=== PATIENT | male | born 1970 | race African-American/Black ===

== ENCOUNTER 2019-11-28 17:35 | Emergency (ER) | payer OTHER ==
[~2019-11-28] VITALS: Ht 180.3 cm; Wt 89.8 kg
[2019-11-28 19:22] LABS: URINE BILIRUBIN NEGATIVE (Negative); URINE BLOOD 2+ (Negative); URINE CLARITY CLEAR; URINE COLOR YELLOW; URINE GLUCOSE-RANDOM* NEGATIVE (Negative); URINE KETONES TRACE (Negative); URINE LEUKOCYTES-REFLEX NEGATIVE (Negative); URINE NITRITE-REFLEX NEGATIVE (Negative); URINE PROTEIN (DIPSTICK) NEGATIVE (Negative); URINE SPECIFIC GRAVITY <= 1.005 (1.005-1.035)
[2019-11-28 19:26] LABS: HEMATOCRIT 31.4 % (42.0-52.0); HEMOGLOBIN 10.3 gm/dL (14.0-18.0); MCH 25.7 pg (26.0-34.0); MCHC 32.7 g/dL (28.0-37.0); MCV 78.6 fL (80.0-100.0); PLATELET COUNT 146 thou/uL (150-400); RDW 17.1 % (10.5-14.5); WBC 4.5 thou/uL (4.0-11.0)
[2019-11-28 19:31] LABS: ANION GAP 14 mmol/L (7-16); BUN 17 mg/dL (7-18); CHLORIDE 99 mmol/L (98-107); CO2 26 mmol/L (21-32); CREATININE 1.3 mg/dL (0.7-1.3); GLUCOSE 92 mg/dL (74-106); POTASSIUM 3.1 mmol/L (3.5-5.1); SODIUM 139 mmol/L (136-145)
[2019-11-28 19:37] LABS: BACTERIA-REFLEX 1-9 Few /HPF (None Seen); CASTS None Seen /LPF (None Seen); CRYSTALS None Seen /LPF (None Seen); SQUAMOUS 0-3 Few /LPF (0-3); URINE WBC-REFLEX 0-5 Rare /HPF (0-5)
[2019-11-28 19:40] LABS: TROPONIN-I <0.06 ng/mL (<0.06)
[2019-11-28 20:03] LABS: ABSOLUTE NEUTROPHILS 2.3 thou/uL (1.4-8.2)
[2019-11-28 20:05] LABS: MICROCYTES 1+; OVALOCYTES 2+
[2019-11-28 20:06] LABS: ANISOCYTOSIS 1+; POLYCHROMASIA OCCASIONAL
[2019-11-28] MEDS ORDERED: LUVOX 50MG TABL50 M1 PO (20:10)
[2019-11-28] MEDS ORDERED: METFORMIN HCL500 M3 PO (20:11)
[2019-11-28] MEDS ORDERED: PAIN RELIEF325 MG PO (20:11)
[2019-11-28] MEDS ORDERED: BUPROPION XL150 MG PO (20:12)
[2019-11-28] MEDS ORDERED: BISMATROL262 MG/15 PO (20:12)
[2019-11-28] MEDS ORDERED: CHLORPROMAZINE25 M1 PO (20:13)
[2019-11-28] MEDS ORDERED: FERRETTS325 MG PO (20:13)
[2019-11-28] MEDS ORDERED: LORATIDINE 10 M10 M1 PO (20:13)
[2019-11-28] MEDS ORDERED: OMEPRAZOLE 20 M20 M1 PO (20:14)
[2019-11-28] MEDS ORDERED: VITAMIN D310 MC3 PO (20:14)
[2019-11-28] MEDS ORDERED: VALIUM5 MG PO (23:16)
[2019-11-28 23:24] VITALS: BP 123/74
--- NOTE | 2019-12-01 08:10 | EKG ---
[facility] [place] [address] [place] [address] ELECTROCARDIOGRAM REPORT Name: SCAR LANG Room #: DEP [facility] [id number] Admission: 11/28/19 Attend Phys: Discharge: 11/28/19 Date of : 72 Report #: [id number] THIS REPORT FOR: cc: Raimundo Fowler MD, Austin T. 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
--- NOTE | 2019-12-01 08:10 | EKG ---
[facility] [place] [address] [address] ELECTROCARDIOGRAM REPORT Name: SCAR LANG Room #: DEP Cesar#: [id number] Admission: 11/28/19 Attend Phys: Discharge: 11/28/19 Date of : 72 Report #: [id number] THIS REPORT FOR: cc: Raimundo Fowler MD, Austin T. MD Santiago, Patrick MD [facility] ~ THIS REPORT FOR: //name// 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 : 1970 Requested By: Van Joya Order Number: [id number] MD: Jigar Harris Measurements Intervals [place] Rate: 97 P: 10 CO: 129 QRS: 2 QRSD: 67 T: 33 QT: 419 QTc: 533 Interpretive Statements Sinus rhythm Probable left atrial enlargement LVH with secondary repolarization abnormality Prolonged QT interval Compared to ECG 11/28/2019 19:22:50 Early repolarization now present Prolonged QT interval now present T-wave abnormality no longer present Electronically Signed On 12-01-2019 8:10:35 CDT by Jigar Harris [email or web address] <ELECTRONICALLY SIGNED> By: Jigar Harris MD, FAC 12/01/19809 29 29 Jigar Harris MD, FAC /EPI
--- NOTE | 2019-12-01 08:10 | EKG ---
[facility] [place] [address] [place] [address] ELECTROCARDIOGRAM REPORT Name: SCAR LANG Room #: DEP Cesar#: [id number] Admission: 11/28/19 Attend Phys: Discharge: 11/28/19 Date of : 72 Report #: [id number] THIS REPORT FOR: cc: Raimundo Fowler MD, Austin T. 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: PEDRITO : 1970 Requested By: Van Joya Order Number: [id number] MD: Jigar Harris Measurements Intervals [place] Rate: 95 P: 7 SD: 153 QRS: 5 QRSD: 84 T: -16 QT: 349 QTc: 439 Interpretive Statements Sinus rhythm Probable left atrial enlargement Left ventricular hypertrophy Borderline T abnormalities, inferior leads Compared to ECG 11/28/2019 19:20:20 T-wave abnormality now present Sinus tachycardia no longer present Prolonged QT interval no longer present Electronically Signed On 12-01-2019 8:10:27 CDT by Jigar Harris [email or web address] <ELECTRONICALLY SIGNED> By: Jigar Harris MD, FACC 12/01/19809 21 21 Jigar Harris MD, FAC /EPI
== END 2019-11-28 23:24 | disposition home or self-care (01) ==
LOC: ER 17:35
PROVIDERS: Emergency Medicine
DX: R42 Dizziness and giddiness (principal); Z79.899 Other long term (current) drug therapy